=== PATIENT | male | born 1940 | race Caucasian/White ===

== ENCOUNTER 2017-10-28 16:10 | Inpatient (IN) | payer MEDICARE, MEDICAID ==
[~2017-10-28] VITALS: Ht 182.9 cm; Wt 77.1 kg
[2017-10-28] MEDS ORDERED: IV NORMAL SALINE 1000 ML BAG IV ONE ×2 (16:30→19:00)
[2017-10-28] MEDS ORDERED: MORPHINE SULFATE 2 MG/1 ML DISP.SYRIN IV ONE (16:30)
[2017-10-28] MEDS ORDERED: ONDANSETRON 4 MG/2 ML VIAL IV ONE (16:30)
[2017-10-28] MEDS ORDERED: ONDANSETRON 4 MG/2 ML VIAL ONE (16:36)
[2017-10-28] MEDS ORDERED: MORPHINE SULFATE 2 MG/1 ML DISP.SYRIN ONE (16:36)
[2017-10-28 16:57] LABS: BASOPHILS # (AUTO) 0.1 K/uL (0.0-8.0); BASOPHILS % (AUTO) 0.8 % (0.0-2.0); EOSINOPHILS % (AUTO) 0.5 % (0.0-7.0); HEMATOCRIT 34.8 % (36.7-47.1); HEMOGLOBIN 11.7 g/dL (12.5-16.3); LYMPHOCYTES % (AUTO) 12.8 % (20.5-51.5); MEAN CORPUSCULAR HEMOGLOBIN 29.5 uug (23.8-33.4); MEAN CORPUSCULAR HGB CONC 34 g/dL (32.5-36.3); MEAN CORPUSCULAR VOLUME 87.7 fL (73.0-96.2); MONOCYTES # (AUTO) 0.6 K/uL (2.0-10.0); MONOCYTES % (AUTO) 7.1 % (0.0-11.0); NEUTROPHILS # (AUTO) 6.3 K/uL (1.8-8.9); NEUTROPHILS % (AUTO) 78.8 % (38.5-71.5); PLATELET COUNT (AUTO) 174 K/uL (152-348); RED BLOOD CELL COUNT(AUTO) 3.97 MIL/uL (4.06-5.63)
[2017-10-28 17:04] LABS: CARBON DIOXIDE 30 mmol/L (21-32); CHLORIDE 105 mmol/L (98-107); CREATININE 1.1 mg/dL (0.6-1.3); GLUCOSE 66 mg/dL (74-106); POTASSIUM 3.5 mmol/L (3.5-5.1); UREA NITROGEN, BLOOD 30 mg/dL (7-18)
[2017-10-28 17:10] LABS: ALANINE AMINOTRANSFERASE 15 U/L (16-63); ALKALINE PHOSPHATASE 40 U/L (50-136); ASPARTATE AMINOTRANSFERASE 14 U/L (15-37); BILIRUBIN,DIRECT 0.1 mg/dL (0.0-0.2); BILIRUBIN,TOTAL 0.2 mg/dL (0.2-1.0); LIPASE 448 U/L (73-393); TOTAL PROTEIN, SERUM 6.8 g/dL (6.4-8.2)
[2017-10-28] MEDS ORDERED: AZITHROMYCIN IV 500 MG in IV DEXTROSE 5% 250 ML IV ONE ×2 (18:30→19:00)
[2017-10-28] MEDS ORDERED: CEFTRIAXONE 1 G in IV DEXTROSE 5% 50 ML IV ONE (18:30)
[2017-10-28] MEDS ORDERED: PIPERACILLIN/TAZOBACTAM/D5W 3.375 G in PREMIXED 1 EACH IV STA (18:53)
[2017-10-28] MEDS ORDERED: AZITHROMYCIN 500 MG VIAL IV ONE (18:58)
[2017-10-28] MEDS ORDERED: CEFTRIAXONE 1 G VIAL ONE (18:59)
[2017-10-28] MEDS ORDERED: PIPERACILLIN SODIUM/TAZO 3.375 GM VIAL ONE (18:59)
[2017-10-28] MEDS ORDERED: PIPERACILLIN/TAZOBACTAM/D5W 50 ML IV ONE (19:00)
--- NOTE | 2017-10-28 19:20 | NUR ---
perineal hygiene provided. redness on the groin anant noticed
--- NOTE | 2017-10-28 19:31 | NUR ---
REPORT TAKEN FROM DAWNA ISLAS. ASSUMING OT CARE AT THIS TIME.
--- NOTE | 2017-10-28 21:15 | NUR ---
REPORT GIVEN TO DAWNA YU.
--- NOTE | 2017-10-28 21:35 | NUR ---
Pt. admitted to TELE, under care of Dr. SCHREIBER Belongs List completed
[2017-10-28 21:36] VITALS: BP 119/57
[2017-10-28] MEDS ORDERED: MAGNESIUM HYDROXIDE 30 ML LIQUID UDC PO PRN (22:00)
[2017-10-28] MEDS ORDERED: ALBUTEROL SULFATE 2.5 MG/3 ML NEBU NEB PRN (22:00)
[2017-10-28] MEDS ORDERED: INSULIN REGULAR, HUMAN 300 UNIT/3 ML VIAL SQ PRN (22:00)
[2017-10-28] MEDS ORDERED: ONDANSETRON 4 MG/2 ML VIAL IV PRN (22:00)
[2017-10-28] MEDS ORDERED: DEXTROSE 50% 50 ML DISP.SYRIN IV PRN (22:00)
[2017-10-28] MEDS ORDERED: INSULIN REGULAR, HUMAN 300 UNITS/3 ML VIAL SQ PRN (22:00)
--- NOTE | 2017-10-28 22:00 | NUR ---
Received patient to [facility] floor, with caregiver at bedside. Patient alert and oriented to name and birthdate. Skin issues noted and documented with photos. Past medical history provided by caregiver who has taken in patient for the last 11 years. Patient able to tolerate water and is eating a sandwich. IV antibiotic continuing infusing from ER. IV site patent and intact. Oriented patient to unit and use of call light. Bed locked and in low position with call light within reach. Addendum: 10/29/17 at 0106 by SPIKE MANCINI RN Caregiver provided home meds, which will be reconciled.
[2017-10-28] MEDS ORDERED: LEVOFLOXACIN 500 MG/D5W 100 ML ONE (23:35)
[2017-10-28] MEDS: TRAZODONE 100 MG TABLET PO SCH (23:38)
[2017-10-28] MEDS: LORAZEPAM 1 MG TABLET PO SCH (23:38)
[2017-10-28] MEDS: LEVOFLOXACIN 500 MG/D5W 500 MG in PREMIXED 1 EACH IV SCH (23:39)
[2017-10-29] VITALS: BP 106/51
[2017-10-29 04:40] VITALS: BP 94/44
--- NOTE | 2017-10-29 05:35 | NUR ---
Pt slept well through the night. Had one episode of waking up crying and yelling for somebody. Patient does not like to be alone. Redirected and offered food and drink. Then patient went back to sleep. No s/s distress noted. Denies pain or discomfort.
[2017-10-29] MEDS: PANTOPRAZOLE SODIUM 40 MG TABLET.DR PO SCH (06:36)
[2017-10-29] MEDS: BLOOD SUGAR DIAGNOSTIC 1 EACH STRIP VI SCH ×5 (06:36→20:36)
--- NOTE | 2017-10-29 06:37 | NUR ---
Held Glipizide due to blood sugar 72.
[2017-10-29 06:52] LABS: BASOPHILS % (AUTO) 0.9 % (0.0-2.0); EOSINOPHILS # (AUTO) 0.1 K/uL (0.0-0.7); EOSINOPHILS % (AUTO) 2.4 % (0.0-7.0); LYMPHOCYTES # (AUTO) 1.2 K/uL (20.0-40.0); LYMPHOCYTES % (AUTO) 21.4 % (20.5-51.5); MEAN CORPUSCULAR HEMOGLOBIN 29.2 uug (23.8-33.4); MEAN CORPUSCULAR HGB CONC 33 g/dL (32.5-36.3); MEAN CORPUSCULAR VOLUME 88.1 fL (73.0-96.2); MONOCYTES # (AUTO) 0.5 K/uL (2.0-10.0); MONOCYTES % (AUTO) 8.9 % (0.0-11.0); NEUTROPHILS # (AUTO) 3.8 K/uL (1.8-8.9); NEUTROPHILS % (AUTO) 66.4 % (38.5-71.5); PLATELET COUNT (AUTO) 132 K/uL (152-348); RED BLOOD CELL COUNT(AUTO) 3.54 MIL/uL (4.06-5.63)
[2017-10-29 07:08] LABS: HEMATOCRIT 31.1 % (36.7-47.1); HEMOGLOBIN 10.3 g/dL (12.5-16.3); WHITE BLOOD COUNT (AUTO) 5.7 K/uL (3.6-10.2)
--- NOTE | 2017-10-29 07:20 | NUR ---
RECEIVED REPORT FROM VETERANS' COUNSELOR NURSE, PATIENT IN BED ASLEEP, NO DISTRESS NOTED AT THIS TIME. BED IN LOW POSITION, SIDE RAILS UPX 2. BED ALARM ON.
[2017-10-29] MEDS ORDERED: glipiZIDE 5 MG TABLET PO SCH (07:30)
[2017-10-29 07:46] LABS: ALANINE AMINOTRANSFERASE 11 U/L (16-63); ALKALINE PHOSPHATASE 34 U/L (50-136); ASPARTATE AMINOTRANSFERASE 12 U/L (15-37); BILIRUBIN,TOTAL 0.3 mg/dL (0.2-1.0); CARBON DIOXIDE 27 mmol/L (21-32); CHLORIDE 108 mmol/L (98-107); CREATININE 1.2 mg/dL (0.6-1.3); GLUCOSE 83 mg/dL (74-106); MAGNESIUM 1.5 mg/dL (1.8-2.4); PHOSPHOROUS 3.7 mg/dL (2.5-4.9); POTASSIUM 3.5 mmol/L (3.5-5.1); TOTAL PROTEIN, SERUM 5.6 g/dL (6.4-8.2); UREA NITROGEN, BLOOD 30 mg/dL (7-18)
[2017-10-29] MEDS ORDERED: METFORMIN HCL 500 MG TABLET PO SCH (08:00)
[2017-10-29] MEDS: DIVALPROEX 125 MG TABLET.DR PO SCH ×3 (08:46→17:58)
[2017-10-29] MEDS: METOPROLOL SUCCINATE XL 50 MG TAB.SR.24H PO SCH (09:00)
[2017-10-29] MEDS: LISINOPRIL 20 MG TABLET PO SCH (09:06)
[2017-10-29] MEDS ORDERED: IPRATROPIUM BROMIDE 0.5 MG/2.5 ML NEBU NEB PRN ×2 (10:45→14:15)
[2017-10-29 11:50] VITALS: BP 123/63
[2017-10-29] MEDS: MAGNESIUM SULFATE/D5W 100 ML IV SCH ×2 (12:22→16:16)
[2017-10-29] MEDS ORDERED: DEXTROSE 50% 50 ML DISP.SYRIN IV PRN (14:00)
[2017-10-29 14:32] LABS: AMYLASE 92 U/L (25-115); LIPASE 203 U/L (73-393)
[2017-10-29] MEDS ORDERED: GLIP5TAB13 PO (14:50)
[2017-10-29] MEDS ORDERED: METO-358 PO (14:52)
[2017-10-29] MEDS ORDERED: DIVA125T2 PO (14:52)
[2017-10-29] MEDS ORDERED: TRAZ-144 PO (14:54)
[2017-10-29] MEDS ORDERED: METF-494 PO (14:54)
[2017-10-29] MEDS ORDERED: NIFE-2 PO (14:56)
[2017-10-29] MEDS ORDERED: LISI40TA4 PO (14:57)
[2017-10-29] MEDS ORDERED: LORA1TAB PO (15:01)
[2017-10-29 15:45] VITALS: BP 143/52
[2017-10-29 15:53] LABS: IRON, SERUM 55 ug/dL (50-175)
[2017-10-29 15:56] LABS: CHOLESTEROL 155 mg/dL (<200); HDL CHOLESTEROL 53 mg/dL (40-60); TRIGLYCERIDES 58 MG/DL (30-150)
[2017-10-29] MEDS: NIFEdipine XL 30 MG TABSR PO SCH (17:57)
--- NOTE | 2017-10-29 18:00 | NUR ---
REPLACED IV TO RIGHT UPPER ARM 20G.
--- NOTE | 2017-10-29 18:57 | NUR ---
PATIENT HAS BEEN COOPERATIVE WITH CARE, AND PHYSICAL THERAPY. CURRENTLY PATIENT IN BED AWAKE, NO EVIDENCE OF DISTRESS NOTED AT THIS TIME, BED IN LOW POSITION, SIDE RAILS UP X2. ALL MEDS WERE RECONCILED WITH DPOA OVER THE PHONE.
[2017-10-29 19:17] LABS: *BILIRUBIN,URIN NEGATIVE (NEGATIVE); *BLOOD, URINE NEGATIVE (NEGATIVE); *CLARITY,URINE CLEAR (CLEAR); *COLOR,URINE YELLOW (YELLOW); *KETONES,URINE TRACE (NEGATIVE); *PROTEIN,URINE TRACE (NEGATIVE); *UROBILINOGEN,URINE 0.2 E.U./dl (NORMAL); LEUKOCYTE ESTERASE ,URINE NEGATIVE (NEGATIVE); NITRITE, URINE NEGATIVE (NEGATIVE); UGLUCOSE NEGATIVE (NEGATIVE)
--- NOTE | 2017-10-29 19:25 | NUR ---
RECEIVED PT AWAKE, ALERT, ORIENTEDX2. PT HUNGRY WANTS SANDWICH. PT IV INTACT AND PATENT. PT SHOWS NO SIGNS OF DISTRESS. CALL LIGHT WITHIN REACH. BED ALARM ON AND IN LOW POSITION. SIDE RAILSX2. WILL CONTIN UE TO MONITOR.
[2017-10-29 20:00] VITALS: BP 164/71
[2017-10-29 20:10] LABS: MUCUS,URINE FEW /LPF (0-FEW); SQUAMOUS EPITHELIAL CELL,UR FEW /HPF (NONE SEEN)
[2017-10-29] MEDS: ACETAMINOPHEN 325 MG TABLET PO PRN (20:34)
[2017-10-29] MEDS: TRAZODONE 100 MG TABLET PO SCH (20:35)
[2017-10-29] MEDS: LORAZEPAM 1 MG TABLET PO SCH (20:35)
[2017-10-29] MEDS: DOCUSATE SODIUM 100 MG CAPSULE PO SCH (20:35)
[2017-10-29] MEDS: LEVOFLOXACIN 500 MG/D5W 500 MG in PREMIXED 1 EACH IV SCH (23:15)
[2017-10-30 00:26] VITALS: BP 133/52
[2017-10-30 04:00] VITALS: BP 112/49
[2017-10-30] MEDS: PANTOPRAZOLE SODIUM 40 MG TABLET.DR PO SCH (06:01)
[2017-10-30 06:08] LABS: BASOPHILS % (AUTO) 0.4 % (0.0-2.0); EOSINOPHILS # (AUTO) 0.1 K/uL (0.0-0.7); EOSINOPHILS % (AUTO) 1.2 % (0.0-7.0); HEMATOCRIT 31.2 % (36.7-47.1); HEMOGLOBIN 10.6 g/dL (12.5-16.3); LYMPHOCYTES # (AUTO) 1.2 K/uL (20.0-40.0); LYMPHOCYTES % (AUTO) 12.2 % (20.5-51.5); MEAN CORPUSCULAR HGB CONC 34 g/dL (32.5-36.3); MEAN CORPUSCULAR VOLUME 88.6 fL (73.0-96.2); MONOCYTES # (AUTO) 0.7 K/uL (2.0-10.0); MONOCYTES % (AUTO) 6.9 % (0.0-11.0); NEUTROPHILS # (AUTO) 8.1 K/uL (1.8-8.9); NEUTROPHILS % (AUTO) 79.3 % (38.5-71.5); PLATELET COUNT (AUTO) 117 K/uL (152-348); RED BLOOD CELL COUNT(AUTO) 3.53 MIL/uL (4.06-5.63); WHITE BLOOD COUNT (AUTO) 10.2 K/uL (3.6-10.2)
[2017-10-30] MEDS: BLOOD SUGAR DIAGNOSTIC 1 EACH STRIP VI SCH ×4 (06:08→20:50)
[2017-10-30 06:23] LABS: ALANINE AMINOTRANSFERASE 10 U/L (16-63); ALKALINE PHOSPHATASE 32 U/L (50-136); ASPARTATE AMINOTRANSFERASE 8 U/L (15-37); BILIRUBIN,TOTAL 0.2 mg/dL (0.2-1.0); CARBON DIOXIDE 26 mmol/L (21-32); CHLORIDE 106 mmol/L (98-107); CREATININE 1.2 mg/dL (0.6-1.3); GLUCOSE 105 mg/dL (74-106); MAGNESIUM 1.8 mg/dL (1.8-2.4); PHOSPHOROUS 3.1 mg/dL (2.5-4.9); POTASSIUM 3.4 mmol/L (3.5-5.1); TOTAL PROTEIN, SERUM 5.6 g/dL (6.4-8.2); UREA NITROGEN, BLOOD 24 mg/dL (7-18)
--- NOTE | 2017-10-30 06:28 | NUR ---
PT SLEPT THROUGHOUT THE SHIFT. PT SHOWS NO SIGNS OF DISTRESS. PT IV INTACT AND PATENT. PRESCRIBED MEDICATION GIVEN. PT TOLERATED IT WELL. HAD 1 BOWEL MOVEMENT. BLOOD SUGAR LEVEL WAS 130 AND 105. NO INSULIN NEEDED BASED ON SLIDING SCALE. PT CAN TAKE MEDICATION ONE AT A TIME WITH APPLY SAUCE. CALL LIGHT WITHIN REACH. BED ALARM ON AND IN LOW POSITION. SAFETY AND COMFORT PROVIDED. CONTINUE CARE OF PLAN. WILL ENDORSE TO DAYSHIFT NURSE.
--- NOTE | 2017-10-30 07:25 | NUR ---
received report from fast food shift supervisor nurse, patient in bed asleep, no distress noted at this time, bed in low position, side rails up x2.
[2017-10-30] MEDS: DIVALPROEX 125 MG TABLET.DR PO SCH ×3 (09:05→18:11)
[2017-10-30] MEDS: HYDROCODONE/APAP 5-325MG TABLET PO PRN ×3 (09:09→18:55)
[2017-10-30] MEDS: NIFEdipine XL 30 MG TABSR PO SCH ×2 (09:09→18:18)
[2017-10-30] MEDS: METOPROLOL SUCCINATE XL 50 MG TAB.SR.24H PO SCH (09:10)
[2017-10-30] MEDS: LISINOPRIL 20 MG TABLET PO SCH (09:10)
[2017-10-30] MEDS ORDERED: hydrALAZINE HCL 25 MG TABLET PO PRN (10:30)
[2017-10-30] MEDS ORDERED: POTASSIUM CHLORIDE 20 MEQ TAB.PRT.SR PO ONE (10:30)
[2017-10-30 11:26] VITALS: BP 125/60
[2017-10-30 14:57] VITALS: BP 109/55
--- NOTE | 2017-10-30 18:49 | NUR ---
Patient has been cooperative throughout the day. Patient reported having abdominal pain and was given medication twice for pain. Patient has been calling out for help but does not appear to be in any physical distress. bed in low position, side rails up x2, bed alarm on.
--- NOTE | 2017-10-30 19:20 | NUR ---
RECEIVED PT AWAKE ALERT ORIENTEDX2. PT IV INTACT AND PATENT. PT ANXIOUS. REORRIENT THE PT THAT HE IN IN THE HOSPITAL. PT LOOKING FOR JOSE ALFREDO. CALL LIGHT WITHIN REACH. BED ALARM ON AND IN LOW POSITION .WILL CONTINUE TO MONITOR.
[2017-10-30] MEDS: DOCUSATE SODIUM 100 MG CAPSULE PO SCH (20:43)
[2017-10-30] MEDS: LORAZEPAM 1 MG TABLET PO SCH (20:43)
[2017-10-30] MEDS: TRAZODONE 100 MG TABLET PO SCH (20:44)
[2017-10-30] MEDS: ACETAMINOPHEN 325 MG TABLET PO PRN (20:44)
[2017-10-30] MEDS: INSULIN REGULAR, HUMAN 300 UNIT/3 ML VIAL SQ PRN (20:51)
[2017-10-30 21:08] VITALS: BP 145/58
[2017-10-30] MEDS: LEVOFLOXACIN 500 MG/D5W 500 MG in PREMIXED 1 EACH IV SCH (23:06)
[2017-10-31 05:40] VITALS: BP 102/59
[2017-10-31] MEDS: PANTOPRAZOLE SODIUM 40 MG TABLET.DR PO SCH (06:06)
--- NOTE | 2017-10-31 06:24 | NUR ---
PT SLEPT THROUGHOUT THE SHIFT. PT SHOWS NO SIGNS OF DISTRESS. PT IV INTACT AND PATENT.BLOOD SUGAR LEVEL WAS 135 AND 129 FROM MY SHIFT. PRESCRIBED MEDICATION GIVEN AND TOLERATED IT WELL. BED ALARM ON . CALL LIGHT WITHIN REACH. SAFETY AND COMFORT PROVIDED. WILL ENDORSE TO DAYSHIFT NURSE.
[2017-10-31] MEDS: BLOOD SUGAR DIAGNOSTIC 1 EACH STRIP VI SCH ×4 (06:30→19:50)
[2017-10-31 06:55] LABS: BASOPHILS % (AUTO) 0.6 % (0.0-2.0); EOSINOPHILS # (AUTO) 0.1 K/uL (0.0-0.7); EOSINOPHILS % (AUTO) 1.9 % (0.0-7.0); HEMATOCRIT 29.1 % (36.7-47.1); HEMOGLOBIN 10.1 g/dL (12.5-16.3); LYMPHOCYTES % (AUTO) 14.5 % (20.5-51.5); MEAN CORPUSCULAR HEMOGLOBIN 30.6 uug (23.8-33.4); MEAN CORPUSCULAR HGB CONC 35 g/dL (32.5-36.3); MEAN CORPUSCULAR VOLUME 88.3 fL (73.0-96.2); MONOCYTES # (AUTO) 0.5 K/uL (2.0-10.0); MONOCYTES % (AUTO) 7.4 % (0.0-11.0); NEUTROPHILS # (AUTO) 5.3 K/uL (1.8-8.9); NEUTROPHILS % (AUTO) 75.6 % (38.5-71.5); PLATELET COUNT (AUTO) 111 K/uL (152-348)
--- NOTE | 2017-10-31 07:20 | NUR ---
RECEIVED REPORT FROM CABLE TV INSTALLER NURSE, PATIENT IN BED ASLEEP, NO DISTRESS NOTED AT THIS TIME, BED IN LOW POSITION, SIDE RAILS UP X2, BED ALARM ON.
[2017-10-31 07:39] LABS: ALANINE AMINOTRANSFERASE 7 U/L (16-63); ALKALINE PHOSPHATASE 29 U/L (50-136); ASPARTATE AMINOTRANSFERASE 9 U/L (15-37); BILIRUBIN,TOTAL 0.3 mg/dL (0.2-1.0); CARBON DIOXIDE 27 mmol/L (21-32); CHLORIDE 106 mmol/L (98-107); CREATININE 1.3 mg/dL (0.6-1.3); GLUCOSE 132 mg/dL (74-106); MAGNESIUM 1.8 mg/dL (1.8-2.4); PHOSPHOROUS 3.2 mg/dL (2.5-4.9); TOTAL PROTEIN, SERUM 5.5 g/dL (6.4-8.2); UREA NITROGEN, BLOOD 27 mg/dL (7-18)
[2017-10-31] MEDS: DIVALPROEX 125 MG TABLET.DR PO SCH ×3 (08:55→17:06)
[2017-10-31] MEDS: NIFEdipine XL 30 MG TABSR PO SCH ×2 (08:57→17:10)
[2017-10-31] MEDS: LISINOPRIL 20 MG TABLET PO SCH (08:57)
[2017-10-31 11:49] VITALS: BP 107/51
[2017-10-31] MEDS: INSULIN REGULAR, HUMAN 300 UNIT/3 ML VIAL SQ PRN ×2 (13:31→20:50)
[2017-10-31 15:29] VITALS: BP 116/53
[2017-10-31] MEDS: Z GUARD REMEDY PASTE 57 GM TUBE TOP SCH ×2 (17:05→20:45)
--- NOTE | 2017-10-31 18:18 | NUR ---
PATIENT HAS BEEN COOPERATIVE WITH CARE, PATIENT OCCASIONALLY CALLS OUT FOR HELP, BUT DOES NOT APPEAR TO BE IN ANY DISTRESS AT THIS TIME. BED IN LOW POSITION, SIDE RAILS UP X2, BED ALARM ON.
--- NOTE | 2017-10-31 19:00 | NUR ---
Received patient awake, appears needy, kept calling somebody's name. Oriented to self but able to cooperate when talk to. HS snack provided after checking his BS 160mg/dl. Denies any pain/discomforts at this time. Continue care as planned.
[2017-10-31 20:39] VITALS: BP 131/76
[2017-10-31] MEDS: DOCUSATE SODIUM 100 MG CAPSULE PO SCH (20:44)
[2017-10-31] MEDS: TRAZODONE 100 MG TABLET PO SCH (20:44)
[2017-10-31] MEDS: LORAZEPAM 1 MG TABLET PO SCH (20:45)
[2017-10-31] MEDS ORDERED: IV D5 1/2 NS 1000 ML 1,000 ML IV SCH (23:45)
--- NOTE | 2017-11-01 | NUR ---
NPO after midnight order initiated.
[2017-11-01] MEDS: HYDROCODONE/APAP 5-325MG TABLET PO PRN (00:34)
[2017-11-01 04:00] VITALS: BP 150/61
[2017-11-01] MEDS: BLOOD SUGAR DIAGNOSTIC 1 EACH STRIP VI SCH (05:31)
[2017-11-01] MEDS: PANTOPRAZOLE SODIUM 40 MG TABLET.DR PO SCH (05:41)
[2017-11-01] MEDS ORDERED: INSULIN REGULAR, HUMAN 300 UNIT/3 ML VIAL SQ PRN ×2 (05:45→11:45)
[2017-11-01] MEDS ORDERED: BLOOD SUGAR DIAGNOSTIC 1 EACH STRIP VI SCH ×2 (06:00→11:45)
--- NOTE | 2017-11-01 06:05 | NUR ---
SHIFT END REPORT: Slept good. Medicated once for generalized pain with relief. No further complaint presented. All needs attended and met. NPO maintained as order. Continue care as planned.
[2017-11-01 06:36] LABS: BASOPHILS % (AUTO) 0.5 % (0.0-2.0); EOSINOPHILS # (AUTO) 0.1 K/uL (0.0-0.7); EOSINOPHILS % (AUTO) 1.7 % (0.0-7.0); HEMOGLOBIN 10.8 g/dL (12.5-16.3); MEAN CORPUSCULAR HEMOGLOBIN 29.8 uug (23.8-33.4); MEAN CORPUSCULAR HGB CONC 34 g/dL (32.5-36.3); MEAN CORPUSCULAR VOLUME 88.1 fL (73.0-96.2); MONOCYTES # (AUTO) 0.5 K/uL (2.0-10.0); MONOCYTES % (AUTO) 7.9 % (0.0-11.0); NEUTROPHILS # (AUTO) 5.1 K/uL (1.8-8.9); NEUTROPHILS % (AUTO) 74.9 % (38.5-71.5); PLATELET COUNT (AUTO) 129 K/uL (152-348); RED BLOOD CELL COUNT(AUTO) 3.63 MIL/uL (4.06-5.63); WHITE BLOOD COUNT (AUTO) 6.9 K/uL (3.6-10.2)
[2017-11-01 06:53] LABS: ALANINE AMINOTRANSFERASE 11 U/L (16-63); ALKALINE PHOSPHATASE 35 U/L (50-136); ASPARTATE AMINOTRANSFERASE 8 U/L (15-37); BILIRUBIN,TOTAL 0.2 mg/dL (0.2-1.0); CARBON DIOXIDE 28 mmol/L (21-32); CHLORIDE 106 mmol/L (98-107); CREATININE 1.2 mg/dL (0.6-1.3); GLUCOSE 184 mg/dL (74-106); MAGNESIUM 1.9 mg/dL (1.8-2.4); PHOSPHOROUS 3.2 mg/dL (2.5-4.9); POTASSIUM 3.9 mmol/L (3.5-5.1); TOTAL PROTEIN, SERUM 6.3 g/dL (6.4-8.2); UREA NITROGEN, BLOOD 25 mg/dL (7-18)
--- NOTE | 2017-11-01 07:05 | NUR ---
RECEIVED REPORT FROM MARBLE WORKER NURSE, PATIENT IN BED ASLEEP, NO DISTRESS NOTED AT THIS TIME, BED IN LOW POSITION, SIDE RAILS UP X2, BED ALARM ON. PATIENT NPO FOR ABDOMINAL ULTRASOUND.
[2017-11-01] MEDS ORDERED: LEVOFLOXACIN 500 MG TABLET PO SCH (09:00)
[2017-11-01] MEDS: DIVALPROEX 125 MG TABLET.DR PO SCH ×2 (09:25→13:14)
[2017-11-01] MEDS: LISINOPRIL 20 MG TABLET PO SCH (09:25)
[2017-11-01] MEDS: Z GUARD REMEDY PASTE 57 GM TUBE TOP SCH (09:26)
[2017-11-01] MEDS: NIFEdipine XL 30 MG TABSR PO SCH (09:26)
[2017-11-01 11:26] VITALS: BP 112/53
[2017-11-01] MEDS ORDERED: DEXTROSE 50% 50 ML DISP.SYRIN IV PRN (11:45)
[2017-11-01 15:52] VITALS: BP 123/61
[2017-11-01] MEDS ORDERED: DOCU100C36 PO (15:57)
[2017-11-01] MEDS ORDERED: ALBU8.5H8 INH (15:57)
[2017-11-01] MEDS ORDERED: LEVO500T2 PO (15:57)
--- NOTE | 2017-11-01 16:45 | NUR ---
patients caregiver was given discharge instructions, iv removed, and all questions answered. patient was taken down to discharge area by RN and transferred to car by caregiver.
== END 2017-11-01 16:45 | disposition home or self-care (01) | DRG 871 ==
LOC: ER 16:12 → TELE 21:12 → MED 10-30 16:15
PROVIDERS: ADMIT Internal Medicine; ATTEND Internal Medicine
DX: A41.9 Sepsis, unspecified organism (principal); J18.9 Pneumonia, unspecified organism; E44.0 Moderate protein-calorie malnutrition; K85.10 Biliary acute pancreatitis without necrosis or infection; D69.6 Thrombocytopenia, unspecified; E11.649 Type 2 diabetes mellitus with hypoglycemia without coma; E87.2 Acidosis; E11.36 Type 2 diabetes mellitus with diabetic cataract; F84.0 Autistic disorder; Q25.47 Right aortic arch; I08.1 Rheumatic disorders of both mitral and tricuspid valves; D64.9 Anemia, unspecified; E83.42 Hypomagnesemia; K80.20 Calculus of gallbladder without cholecystitis without obstruction; Z87.01 Personal history of pneumonia (recurrent); Z90.79 Acquired absence of other genital organ(s); K56.41 Fecal impaction; H54.8 Legal blindness, as defined in USA; H40.9 Unspecified glaucoma; K40.90 Unilateral inguinal hernia, without obstruction or gangrene, not specified as recurrent; E87.6 Hypokalemia; Z79.899 Other long term (current) drug therapy; F31.9 Bipolar disorder, unspecified; F41.9 Anxiety disorder, unspecified; Z79.84 Long term (current) use of oral hypoglycemic drugs; R00.1 Bradycardia, unspecified; T50.905A Adverse effect of unspecified drugs, medicaments and biological substances, initial encounter; Y92.89 Other specified places as the place of occurrence of the external cause; I11.9 Hypertensive heart disease without heart failure; F20.9 Schizophrenia, unspecified; N40.0 Benign prostatic hyperplasia without lower urinary tract symptoms; Z86.73 Personal history of transient ischemic attack (TIA), and cerebral infarction without residual deficits; R29.6 Repeated falls; E83.51 Hypocalcemia
CPT/HCPCS: 36415; 70030-TC; 71045; 71250; 76700; 83550; 83605; 83690; 83735; 84100; 84443; 85025; 85730; 87040; 87086; 93005; 93307; A4663; J0456; J0696; J1815; J1956; J2270; J2405; J2543; J3475; J3490; J7030; J7060